=== PATIENT | female | born 1950 | race Caucasian/White ===

== ENCOUNTER 2022-08-07 10:01 | Inpatient (IN) ==
[2022-08-07] MEDS ORDERED: ALBUTEROL 0.083% NEBU SOLN 3 ML VIAL NEB STA (10:19)
--- NOTE | 2022-08-07 10:21 | Emergency Department Note ---
Impression & Plan CHF (congestive heart failure), Acute respiratory failure with hypoxia, Hypertension ED Provider Note NAME: AADLI SCHULER AGE: 72 SEX: F : 1950 ARRIVES VIA: Walk-In INFORMANT: Patient ED PROVIDER(S): Baudilio Lee DO CHIEF COMPLAINT: shortness of breath HPI: Patient is a 72-year-old female who walks 4 miles a day that presents to the ER for shortness of breath which started yesterday into today. She denies any new cough, runny nose, or congestion. She had COVID at the end of June. No chest pain. No belly pain, nausea, vomiting, or diarrhea. She notes she can barely walk 100 feet without getting extremely short of breath. Does not change with lying flat or sitting up. Rest does improve it. Again significantly worse with any kind of movement. ROS: See above HPI for pertinent positives & negatives. A total of 10 systems reviewed and were otherwise negative. PAST MEDICAL HISTORY:See Below PAST SURGICAL HISTORY:See Below FAMILY HISTORY:See Below SOCIAL HISTORY:See Below HOME MEDICATIONS:See Below ALLERGIES:See Below VITALS:See Below PHYSICAL EXAMINATION: GENERAL: Sitting up in bed, alert, dyspneic with conversation EYE EXAM: normal conjunctiva. PERRL and EOM's grossly intact. OROPHARYNX: no exudate, no erythema, lips, buccal mucosa, and tongue normal and mucous membranes are moist NECK: supple, no nuchal rigidity, no adenopathy, non-tender LUNGS: Clear to auscultation. Normal chest wall mechanics HEART: no murmurs, S1 normal and S2 normal ABDOMEN: abdomen soft, non-tender, normo-active bowel sounds, no masses, no rebound or guarding. UPPER EXTREMITIES: upper extremities are grossly normal. LOWER EXTREMITIES: No pitting edema. Left calf slightly larger than right NEURO EXAM: Normal sensorium, cranial nerves II-XII grossly intact, normal speech, no gross weakness of arms, no gross weakness of legs. MEDICAL DECISION MAKING: Patient is a 72-year-old female who presents ER for shortness of breath with exertion which started over the past 24 hours. IV was established blood work was obtained. Labs show mild leukocytosis of 14,000. No significant anemia. BMP with slightly elevated glucose at 148. Troponin was negative. LFTs were unremarkable. COVID was positive. Patient was positive with COVID at the end of June and I question if this is secondary to that or new infection. Chest x-ray and CT of the chest show no PEs but pulmonary edema. Patient was given Lasix. This is new onset. Updated at bedside. Discussed with the hospitalist Sam for further evaluation. She is hypoxic with exertion dropping down to 87%. Triage Nursing notes reviewed. Limited review of prior medical records performed Vital Signs: reviewed and remarkable for no significant abnormalities Differential diagnosis: Differential diagnoses includes but is not limited to pneumonia, bronchitis, COPD/Asthma exacerbation, pneumothorax, pulmonary embolism, congestive heart failure, acute coronary syndrome ER treatment provided: See below Diagnostics interpreted by me: ECG: Sinus rhythm at 87 Normal axis T wave inversion in lead III T wave version V1 through V3 QTC 466 no old to compare to Cardiac Monitoring: An order was placed for continuous cardiac monitoring. The monitor shows a rate of 80 with sinus rhythm. Laboratory studies: As stated above and show below. Imaging studies: CT of the chest shows pulmonary edema Consultation(s): D/w Dr. Pinedo as described above Procedures: none Critical Care: None Past Med/Surg History Medical History Anxiety Hypertension Social History (Updated 08/07/22 @ 13:36 by Sam Rivas MD) Smoking Status: Never smoker Hx Alcohol Use: Yes (~3x/day) Feels Safe at Home: Yes Allergies Allergies Allergy/AdvReac Type Severity Reaction Status Date / Time No Known Allergies Allergy Unverified 08/07/22 15:10 Home Meds Home Medications Medication Instructions Recorded Confirmed ascorbic acid (vitamin C) 500 mg 500 mg PO DAILY 08/07/22 08/07/22 tablet (Vitamin C) bromfenac 0.07 % eye drops 1 drp OPB BID 08/07/22 08/07/22 (Prolensa) cholecalciferol (vitamin D3) 25 25 mcg PO QAM 08/07/22 08/07/22 mcg (1,000 unit) tablet (Vitamin D3) iron 18 mg tablet 18 mg PO Q2D 08/07/22 08/07/22 lisinopril 20 mg tablet 20 mg PO DAILY 08/07/22 08/07/22 lutein 20 mg capsule 20 mg PO DAILY 08/07/22 08/07/22 nutritional supplement-fiber oral 0 ea PO BID 08/07/22 08/07/22 liquid omega 4-fyn-xwn-fish oil 60 mg-90 1 cap PO DAILY 08/07/22 08/07/22 mg-500 mg capsule (Fish Oil) tumeric 100 mg-roxie 150 mg-olive 1 cap PO DAILY 08/07/22 08/07/22 50 mg-oreg 150 mg-caprylate capsule vitamin B complex 1 cap PO QAM 08/07/22 08/07/22 vitamin E 268 mg (400 unit) capsule 268 mg PO DAILY 08/07/22 08/07/22 Previous Rx's Medication Instructions Recorded venlafaxine 75 mg tablet,extended 75 mg PO DAILY #90 tabs 07/14/19 release 24 hr Results & Data (ED) Vital Signs Vital Signs - 24 hr 08/07/22 10:06 08/07/22 10:33 08/07/22 10:33 Temperature 36.3 C L Temperature Source Temporal Artery Scan Pulse Rate 93 H Pulse Rate [Finger] Pulse Rate from SpO2 Sensor Pulse Rhythm [Finger] Pulse Strength [Finger] Respiratory Rate 22 Respiratory Effort / Characteristics Spontaneous Labored Non-Labored Spontaneous Respiratory Depth Normal Normal Respiratory Pattern Regular Regular Blood Pressure 104/75 Blood Pressure [Left Arm] Blood Pressure Mean 84 Blood Pressure Mean [Left Arm] Blood Pressure Position [Left Arm] Pulse Oximetry 93 Oxygen Delivery Method Room Air Room Air Sepsis Recent Fever Within 48 Hours No Sepsis New/Unexplained Change in Mental Status No Sepsis Action Taken by Nursing No Action Required 08/07/22 10:39 08/07/22 11:00 08/07/22 11:06 Temperature Temperature Source Pulse Rate 84 87 86 Pulse Rate [Finger] Pulse Rate from SpO2 Sensor 84 87 87 Pulse Rhythm [Finger] Pulse Strength [Finger] Respiratory Rate 31 H 23 21 Respiratory Effort / Characteristics Respiratory Depth Respiratory Pattern Blood Pressure Blood Pressure [Left Arm] Blood Pressure Mean Blood Pressure Mean [Left Arm] Blood Pressure Position [Left Arm] Pulse Oximetry 97 94 94 Oxygen Delivery Method Sepsis Recent Fever Within 48 Hours Sepsis New/Unexplained Change in Mental Status Sepsis Action Taken by Nursing 08/07/22 11:06 08/07/22 11:30 08/07/22 12:10 Temperature Temperature Source Pulse Rate 83 Pulse Rate [Finger] Pulse Rate from SpO2 Sensor 84 Pulse Rhythm [Finger] Pulse Strength [Finger] Respiratory Rate 22 Respiratory Effort / Characteristics Respiratory Depth Respiratory Pattern Blood Pressure 114/63 127/64 Blood Pressure [Left Arm] Blood Pressure Mean 80 85 Blood Pressure Mean [Left Arm] Blood Pressure Position [Left Arm] Pulse Oximetry 94 Oxygen Delivery Method Sepsis Recent Fever Within 48 Hours Sepsis New/Unexplained Change in Mental Status Sepsis Action Taken by Nursing 08/07/22 12:10 08/07/22 12:45 08/07/22 14:00 Temperature Temperature Source Pulse Rate 92 H Pulse Rate [Finger] 83 84 Pulse Rate from SpO2 Sensor Pulse Rhythm [Finger] Regular Regular Pulse Strength [Finger] Normal Normal Respiratory Rate 16 22 Respiratory Effort / Characteristics Short of Breath SOB on Exertion Non-Labored Respiratory Depth Normal Normal Respiratory Pattern Regular Regular Blood Pressure Blood Pressure [Left Arm] 128/77 148/92 H Blood Pressure Mean Blood Pressure Mean [Left Arm] 94 110 Blood Pressure Position [Left Arm] Lying Pulse Oximetry 88 L 93 Oxygen Delivery Method Room Air Room Air Sepsis Recent Fever Within 48 Hours Sepsis New/Unexplained Change in Mental Status Sepsis Action Taken by Nursing Laboratory Data Result diagrams: 08/07/22 10:30 08/07/22 10:30 Lab Results 08/07/22 08/07/22 08/07/22 Range/Units 10:30 10:30 10:34 WBC 14.10 H (4.8-10.8) K/ul RBC 4.36 (3.93-5.22) M/uL Hgb 14.4 (12.0-16.0) g/dl POC Hgb 15.0 (12.0-16.0) g/dl Hct 43.5 (34.1-44.9) % POC Hct 44 (37-47) % MCV 99.8 (80.0-100.0) fL MCH 33.0 (25.0-34.0) pg MCHC 33.1 (32.0-36.0) g/dL RDW Std Deviation 47.3 H (36.4-46.3) fL RDW Coeff of Dominique 12.9 (11.5-14.5) % Plt Count 210 (130-400) K/uL MPV 9.5 (9.4-12.3) fL Immature Gran % (Auto) 0.4 % Neut % (Auto) 92.9 % Lymph % (Auto) 1.5 % Giles % (Auto) 4.8 % Eos % (Auto) 0.1 % Baso % (Auto) 0.3 % Neut # (Auto) 13.11 H (1.4-6.5) K/uL Lymph # (Auto) 0.21 L (1.2-3.4) K/uL Giles # (Auto) 0.67 (0.24-0.82) K/uL Eos # (Auto) 0.02 (0-0.50) K/uL Baso # (Auto) 0.04 (0-0.2) K/uL Immature Gran # (Auto) 0.05 H (0.00-0.02) K/uL Toxic Vacuolation 1+ Echinocytes 2+ POC Sodium 140 (135-144) mmol/L Sodium 139 (136-145) mmol/L POC Potassium 4.3 (3.3-5.0) mmol/L Potassium 4.4 (3.5-5.1) mmol/L POC Chloride 104 (101-112) mmol/L Chloride 105 (98-107) mmol/L Carbon Dioxide 26 (21-32) mmol/L POC Total CO2 26 (24-31) mmol/L Anion Gap 8 (3-11) POC Anion Gap 15.0 L (16-25) mmol/L POC BUN 22 H (7-18) mg/dl BUN 20 (6-23) mg/dl Creatinine 0.74 (0.6-1.2) mg/dl POC Creatinine 0.7 (0.6-1.3) mg/dl Est Cr Clr Drug Dosing 71.8 ml/min Est GFR ( Amer) 92.5 ml/min Est GFR (Non-Af Amer) 79.8 ml/min BUN/Creatinine Ratio 27.0 H (10-20) Glucose 148 H (70-99(Fasting)) mg/dl POC Glucose (other) 152 H (70-99) mg/dl Calcium 8.6 (8.5-10.1) mg/dl POC Ioniz Calcium Hayden 1.09 L (1.12-1.32) mmol/l Total Bilirubin 1.1 H (0.2-1.0) mg/dl AST 15 (13-39) U/L ALT 11 (7-52) U/L Alkaline Phosphatase 61 (34-104) U/L Troponin I High Sens 5.1 (0-14) pg/ml Total Protein 6.1 (6.0-8.3) gm/dl Albumin 3.9 (3.4-5.0) gm/dl Globulin 2.2 L (2.5-4.0) gm/dl Albumin/Globulin Ratio 1.8 (0.9-2) Lipase 14 (11-82) U/L SARS-CoV-2 (PCR) (Negative) Influenza Type A (PCR) (Neg) Influenza Type B (PCR) (Neg) RSV (RT-PCR) (Neg) 08/07/22 08/07/22 Range/Units 10:39 14:24 WBC (4.8-10.8) K/ul RBC (3.93-5.22) M/uL Hgb (12.0-16.0) g/dl POC Hgb (12.0-16.0) g/dl Hct (34.1-44.9) % POC Hct (37-47) % MCV (80.0-100.0) fL MCH (25.0-34.0) pg MCHC (32.0-36.0) g/dL RDW Std Deviation (36.4-46.3) fL RDW Coeff of Dominique (11.5-14.5) % Plt Count (130-400) K/uL MPV (9.4-12.3) fL Immature Gran % (Auto) % Neut % (Auto) % Lymph % (Auto) % Giles % (Auto) % Eos % (Auto) % Baso % (Auto) % Neut # (Auto) (1.4-6.5) K/uL Lymph # (Auto) (1.2-3.4) K/uL Giles # (Auto) (0.24-0.82) K/uL Eos # (Auto) (0-0.50) K/uL Baso # (Auto) (0-0.2) K/uL Immature Gran # (Auto) (0.00-0.02) K/uL Toxic Vacuolation Echinocytes POC Sodium (135-144) mmol/L Sodium (136-145) mmol/L POC Potassium (3.3-5.0) mmol/L Potassium (3.5-5.1) mmol/L POC Chloride (101-112) mmol/L Chloride (98-107) mmol/L Carbon Dioxide (21-32) mmol/L POC Total CO2 (24-31) mmol/L Anion Gap (3-11) POC Anion Gap (16-25) mmol/L POC BUN (7-18) mg/dl BUN (6-23) mg/dl Creatinine (0.6-1.2) mg/dl POC Creatinine (0.6-1.3) mg/dl Est Cr Clr Drug Dosing ml/min Est GFR ( Amer) ml/min Est GFR (Non-Af Amer) ml/min BUN/Creatinine Ratio (10-20) Glucose (70-99(Fasting)) mg/dl POC Glucose (other) (70-99) mg/dl Calcium (8.5-10.1) mg/dl POC Ioniz Calcium Hayden (1.12-1.32) mmol/l Total Bilirubin (0.2-1.0) mg/dl AST (13-39) U/L ALT (7-52) U/L Alkaline Phosphatase (34-104) U/L Troponin I High Sens 4.6 (0-14) pg/ml Total Protein (6.0-8.3) gm/dl Albumin (3.4-5.0) gm/dl Globulin (2.5-4.0) gm/dl Albumin/Globulin Ratio (0.9-2) Lipase (11-82) U/L SARS-CoV-2 (PCR) POSITIVE A* (Negative) Influenza Type A (PCR) Negative (Neg) Influenza Type B (PCR) Negative (Neg) RSV (RT-PCR) Negative (Neg) Administered Medications Vitamin B Complex (Vitamin B Complex Tab) 1 tab PO QAM AZALEA Stop: 09/06/22 13:44 Last Admin: 08/07/22 14:52 Dose: 1 tab Documented By: YEYO Discontinued Medications Albuterol (Albuterol 0.083% Nebu Soln 3 Ml Vial) 2.5 mg NEB NOW STA; Protocol Stop: 08/07/22 10:20 Last Admin: 08/07/22 10:32 Dose: 2.5 mg Documented By: JOJO Furosemide (Furosemide 40 Mg/4 Ml Vial) 40 mg IV NOW STA Stop: 08/07/22 12:32 Last Admin: 08/07/22 12:46 Dose: 40 mg Documented By: JKH Ioversol (Optiray 320 500ml) 92 ml IV ONCE ONE Stop: 08/07/22 12:11 Last Admin: 08/07/22 12:10 Dose: 92 ml Documented By: NCAna Imaging Data Radiologist's Impression: Chest CTA 08/07/22 10:18 CT ANGIOGRAPHY OF THE CHEST, PULMONARY EMBOLUS PROTOCOL CLINICAL HISTORY: Wheezing. Chest pain. Evaluate for pulmonary embolus. COMPARISON STUDY: Chest radiographs April 17, 2006 and August 07, 2022. TECHNIQUE: Following IV administration of 92 mL of Optiray, helical axial images of the chest were obtained utilizing the pulmonary embolus protocol. Maximal intensity projections and sagittal and coronal reformats were viewed on an independent 3D workstation. IV contrast was administered without complication. Automated exposure control was utilized for the study. A dose lowering technique was utilized adhering to the principles of ALARA. CT DOSE: 400.60 mGy.cm FINDINGS: No pulmonary emboli are identified. There is no thoracic aortic dissection. Moderate cardiomegaly is noted. There is no pericardial effusion. Small bilateral pleural effusions are present. There is no pneumothorax. Central airways are patent. Index subcarinal lymph node measures 1.2 cm short axis diameter. Prominent bilateral hilar lymph nodes are present. Interlobular septal thickening throughout the lungs is noted. Additional ground glass opacities are also present. There is no lobar consolidation. No acute fracture or suspicious lesion within the visualized bony thorax is present. There are postoperative findings within the upper inner quadrant of the right breast. Visualized portions of the upper abdomen are unremarkable. IMPRESSION: 1. No pulmonary emboli identified. 2. Findings consistent with moderate pulmonary edema. Small bilateral pleural effusions. Cardiomegaly. 3. Prominent mediastinal and bilateral hilar lymph nodes which but may be related to pulmonary edema. ACT 112: Negative or not required by law. Electronically signed by: Donal Aguilar M.D. 08/07/2022 12:20 PM Chest X-Ray 08/07/22 10:18 SINGLE VIEW CHEST CLINICAL HISTORY: Atypical chest pain. Dyspnea. FINDINGS: An AP, portable, upright chest radiograph is compared to study dated 04/17/2006. The heart is enlarged noting atherosclerotic calcification of the thoracic aorta. There is pulmonary vascular congestion. Bilateral airspace opacities likely represent pulmonary edema. There are small pleural effusions with dependent consolidation. No pneumothorax is seen. The skeletal structures are osteopenic. The bony thorax is grossly intact. IMPRESSION: 1. Cardiomegaly with evidence of congestive failure. 2. Bilateral airspace opacities likely represent pulmonary edema. Correlate clinically for evidence of a superimposed infectious/inflammatory pneumonitis. Radiographic follow-up to resolution is recommended. 3. Small pleural effusions. ACT 112: Negative or not required by law. Electronically signed by: Gurmeet Rawls M.D. 08/07/2022 10:54 AM Discharge Plan Visit Data Chief Complaint: Shortness of Breath/Dyspnea Stated Complaint: CANT BREATHE, SOB ED Provider: Baudilio Lee Discharge Problem: CHF (congestive heart failure), Acute respiratory failure with hypoxia, Hypertension Forms Stand Alone Forms: My [facility] [employer] Prescriptions Prescriptions: No Action venlafaxine 75 mg tablet extended release 24hr 75 mg PO DAILY Qty: 90 1RF lisinopril 20 mg tablet 20 mg PO DAILY ascorbic acid (vitamin C) [Vitamin C] 500 mg Tablet 500 mg PO DAILY vitamin E 268 mg (400 unit) Capsule 268 mg PO DAILY vitamin B complex [B Complex] Capsule 1 cap PO QAM iron 18 mg Tablet 18 mg PO Q2D Juice Plus Liquid 0 ea PO BID lutein 20 mg Capsule 20 mg PO DAILY Rx Instructions: give with meal/snack cholecalciferol (vitamin D3) [Vitamin D3] 25 mcg (1,000 unit) Tablet 25 mcg PO QAM omega 3-psh-ees-fish oil [Fish Oil] 60-90-500 mg Capsule 1 cap PO DAILY Prolensa 0.07 % drops 1 drp OPB BID josovfc-fuxg-mksoq-oreg-capryl 100 mg-150 mg- 50 mg-150 mg Capsule 1 cap PO DAILY Referrals Referrals: Abhijit Edmondson MD [Primary Care Provider] -
[2022-08-07 10:47] LABS: iSTAT Creatinine 0.7 mg/dl (0.6-1.3); iSTAT Ionized Calcium 1.09 mmol/l (1.12-1.32); iSTAT Potassium 4.3 mmol/L (3.3-5.0)
[2022-08-07 10:48] LABS: Hematocrit (blood only) 43.5 % (34.1-44.9); Hemoglobin 14.4 g/dl (12.0-16.0); Mean Corpuscular Hgb Conc 33.1 g/dL (32.0-36.0); Mean Corpuscular Volume 99.8 fL (80.0-100.0); Mean Platelet Volume 9.5 fL (9.4-12.3); Platelet Count 210 K/uL (130-400); RDW Coefficient of Variation 12.9 % (11.5-14.5); RDW Standard Deviation 47.3 fL (36.4-46.3); Red Blood Count 4.36 M/uL (3.93-5.22)
--- NOTE | 2022-08-07 10:55 | XRay Report ---
SINGLE VIEW CHEST CLINICAL HISTORY: Atypical chest pain. Dyspnea. FINDINGS: An AP, portable, upright chest radiograph is compared to study dated 04/17/2006. The heart is enlarged noting atherosclerotic calcification of the thoracic aorta. There is pulmonary vascular con gestion. Bilateral airspace opacities likely represent pulmonary edema. There are small pleural effus ions with dependent consolidation. No pneumothorax is seen. The skeletal structures are osteopenic. T he bony thorax is grossly intact. IMPRESSION: 1. Cardiomegaly with evidence of congestive failure. 2. Bilateral airspace opacities likely represent pulmonary edema. Correlate clinically for evidence o f a superimposed infectious/inflammatory pneumonitis. Radiographic follow-up to resolution is recomme nded. 3. Small pleural effusions. ACT 112: Negative or not required by law. Electronically signed by: Gurmeet Rawls M.D. 08/07/2022 10:54 AM
[2022-08-07 11:09] LABS: Basophils # (auto) 0.04 K/uL (0-0.2); Basophils % (auto) 0.3 %; Echinocytes 2+; Eosinophils # (auto) 0.02 K/uL (0-0.50); Eosinophils % (auto) 0.1 %; Immature Granulocytes # (auto) 0.05 K/uL (0.00-0.02); Immature Granulocytes % (auto) 0.4 %; Lymphocytes # (auto) 0.21 K/uL (1.2-3.4); Lymphocytes % (auto) 1.5 %; Monocytes # (auto) 0.67 K/uL (0.24-0.82); Monocytes % (auto) 4.8 %; Neutrophils # (auto) 13.11 K/uL (1.4-6.5); Neutrophils % (auto) 92.9 %; Toxic Vacuolation 1+
[2022-08-07 11:19] LABS: Troponin I High Sensitivity 5.1 pg/ml (0-14)
[2022-08-07 11:24] LABS: Albumin Globulin Ratio 1.8 (0.9-2); Albumin Level 3.9 gm/dl (3.4-5.0); Bilirubin,Total 1.1 mg/dl (0.2-1.0); Calcium 8.6 mg/dl (8.5-10.1); Creatinine Clr Calc Pharmacy 71.8 ml/min; Est GFR (African American) 92.5 ml/min; Est GFR (Non-African American) 79.8 ml/min; Globulin 2.2 gm/dl (2.5-4.0); Potassium 4.4 mmol/L (3.5-5.1); Total Protein 6.1 gm/dl (6.0-8.3)
[2022-08-07 11:28] LABS: Influenza A virus by PCR Negative (Neg); Influenza B virus by PCR Negative (Neg); RSV by PCR Negative (Neg)
[2022-08-07 11:54] LABS: SARS CoV2 RNA(COVID-19)Cepheid POSITIVE (Negative)
[2022-08-07] MEDS ORDERED: OPTIRAY 320 500ml IV ONE (12:10)
--- NOTE | 2022-08-07 12:21 | CT Scan Report ---
CT ANGIOGRAPHY OF THE CHEST, PULMONARY EMBOLUS PROTOCOL CLINICAL HISTORY: Wheezing. Chest pain. Evaluate for pulmonary embolus. COMPARISON STUDY: Chest radiographs April 17, 2006 and August 07, 2022. TECHNIQUE: Following IV administration of 92 mL of Optiray, helical axial images of the chest were ob tained utilizing the pulmonary embolus protocol. Maximal intensity projections and sagittal and brittani nal reformats were viewed on an independent 3D workstation. IV contrast was administered without com plication. Automated exposure control was utilized for the study. A dose lowering technique was uti lized adhering to the principles of ALARA. CT DOSE: 400.60 mGy.cm FINDINGS: No pulmonary emboli are identified. There is no thoracic aortic dissection. Moderate cardi omegaly is noted. There is no pericardial effusion. Small bilateral pleural effusions are present. Th ere is no pneumothorax. Central airways are patent. Index subcarinal lymph node measures 1.2 cm short axis diameter. Prominent bilateral hilar lymph nodes are present. Interlobular septal thickening thr oughout the lungs is noted. Additional ground glass opacities are also present. There is no lobar con solidation. No acute fracture or suspicious lesion within the visualized bony thorax is present. Ther e are postoperative findings within the upper inner quadrant of the right breast. Visualized portions of the upper abdomen are unremarkable. IMPRESSION: 1. No pulmonary emboli identified. 2. Findings consistent with moderate pulmonary edema. Small bilateral pleural effusions. Cardiomegaly . 3. Prominent mediastinal and bilateral hilar lymph nodes which but may be related to pulmonary edema. ACT 112: Negative or not required by law. Electronically signed by: Donal Aguilar M.D. 08/07/2022 12:20 PM
[2022-08-07] MEDS ORDERED: FUROSEMIDE 40 MG/4 ML VIAL IV STA (12:31)
--- NOTE | 2022-08-07 12:55 | History & Physical Report ---
Date of Service August 07, 2022 Assessment & Plan (1) Acute respiratory failure with hypoxia: Plan: AHRF 2/2 Acute CHF Does endorse salty diet and likes pretzels. No prior history of CHF or CO Leukocytosis to 14.1 Creatinine with normal baseline less than 1, admitting creatinine 0.74 COVID is positive on admission, patient did have COVID with positive home test around July 16 with interval recovery prior to today. Suspect residual positive CXR: Cardiomegaly with pulmonary vascular congestion and bilateral opacities suspicious for edema with pleural effusions. - CTA:No pulmonary emboli are identified. There is no thoracic aortic disse ction. Moderate cardiomegaly is noted. There is no pericardial effusion. Small bilateral pleural effusions are present. There is no pneumothorax. Central airways are patent. Index subcarinal lymph node measures 1.2 cm short axis diameter. Prominent bilateral hilar lymph nodes are present. Interlobular septal thickening throughout the lungs is noted. Additional ground glass opacities are also present. There is no lobar consolidation. No acute fracture or suspicious lesion within the visualized bony thorax is present. There are postoperative findings within the upper inner quadrant of the right breast. Visualized portions of the upper abdomen are unremarkable. Troponin: High-sensitivity normal on admit. 2-hour repeat pending EKG normal sinus rhythm no ST segment changes. QTC 466 Procalcitonin pending. No fevers/chills/sweats. Without chest pain/troponin/EKG changes suggestive of CO/ischemic CHF. DDx includes alcohol induced, stress myopathy, diastolic dysfunction. Lyme pending. - Echo pending. SPO2 goal greater than 90% Anxiety Continue venlafaxine Hypertension Continue home aspirin daily, continue lisinopril 20 mg daily COVID-positive Was COVID-positive July 16 by home test. Did recover in the interval. Low suspicion for COVID as acute cause of symptoms,? Potential for viral myopathy. Echo pending above Given that no PCR test to confirm original date of infection is available must remain on COVID precautions at this time Defer steroids at this time, treat as CHF above Daily alcohol use Reports up to/around 3 drinks per day. Had several consecutive alcohol free days at the end of June and around COVID, reports she had no withdrawal symptoms or tremors due to this Follow clinically, if signs of tremors/tachycardia develops switch to LUIS FERNANDO S protocol. Defer active protocol at this time. DVT prophylaxis: Lovenox Diet: Heart healthy, low-salt Disposition: Medical with telemetry CODE STATUS: Full code (2) CHF (congestive heart failure): (3) Anxiety: (4) Hypertension: History of Present Illness Primary Care Provider: Abhijit Edmondson MD Katherine is a 72-year-old female with a past medical history of anxiety who presents with 2 days of shortness of breath without other URI symptoms. She is unable to ambulate for more than several 100 feet without limiting dyspnea, normally walks several miles a day without difficulty. In the ER she is with O2 sats approximately 92 at rest, quickly desats with an 88 on attempted ambulation to the bathroom. Seen at the bedside. She reports her symptoms began fairly quickly yesterday evening and this morning. She reports that she was last able to do her normal mountain hike yesterday (approximately 4 miles total with elevation change) with some increased but not significant shortness of breath, and then woke up today with significant exercise limitation due to shortness of breath. She denies chest pressure or chest pain at any point. She is anxious and tearful and notes that she has been under some stress with the holidays and notes her mother had a heart attack and from CHF in her 50s on . She endorses additional underlying anxiety. She does drink alcohol usually daily about 3 drinks per day, had several free alcohol days in a row last month without any withdrawal symptoms. Denies tobacco use. No prior chest pain/chest pressure/CO/angina. No nausea/vomiting/diarrhea/constipation. [place] live in the [place] with [place], no recent bites or rash to her knowledge. Has had some fingertip tingling in the last 24 hours. No fevers/chills/sweats/cough. Did have COVID last month, was diagnosed by home test a day or 2 before . Feels until today she had been breathing well. No cough. She denies orthopnea, and is able to breathe laying flat. Medical History: Reviewed Medications: Reviewed Surgical History: Reviewed Allergies: Reviewed Social History: Reviewed. Approximately 3 drinks per day, no history of withdrawal symptoms. No tobacco use. Code Status: Full code Allergies Allergy/AdvReac Type Severity Reaction Status Date / Time No Known Allergies Allergy Unverified 04/24/16 11:07 Home Medications Medication Instructions Recorded Confirmed Type ASPIRIN (ASPIRIN CHEWABLE) 81 mg PO QAM ##0 04/03/16 History B-COMPLEX VITAMINS (VITAMIN B 1 tab PO QAM ##0 04/03/16 History COMPLEX) BROMFENAC SODIUM (OPHTH) 1 drp OPR BID ##0 04/03/16 History (BROMFENAC) CHOLECALCIFEROL (VITAMIN D3) 1 cap PO QAM ##0 04/03/16 History Fish Oil (Randle-3) 1,250 mg PO QAM #0 caps 04/03/16 History IRON 27 mg PO Q2D ##0 04/03/16 History JUICE PLUS 2 cap PO DAILY ##0 04/03/16 History MISC NATURAL PRODUCTS (LUTEIN 20) 1 cap PO QAM ##0 04/03/16 History MULTIPLE VITAMINS W/ CALCIUM 1 dose PO BID ##0 04/03/16 History (VIACTIV MULTI-VITAMIN) NUTRITIONAL SUPPLEMENTS (JUICE ##0 04/03/16 History PLUS FIBRE) Tocopheryl Acet,Dl-Alpha (Vitamin 400 inter.unit PO QAM #0 caps 04/03/16 History E) Prednisolone Acetate 1% Oph (Pred 1 drp OPR TID ##0 04/19/16 History Forte 1% Oph) venlafaxine 75 mg tablet,extended 75 mg PO DAILY #90 tabs 07/14/19 Rx release 24 hr Past Med/Surg History Medical History Anxiety Hypertension Social History (Updated 08/07/22 @ 13:36 by Sam Rivas MD) Smoking Status: Never smoker Hx Alcohol Use: Yes (~3x/day) Feels Safe at Home: Yes Review of Systems Review of Systems: All systems reviewed & are unremarkable except as noted in Subjective Physical Exam Physical Exam: General: A&Ox3. NAD. Cooperative. HEENT: Atraumatic, normocephalic. Eom intact, PERLAA. Pulm: Bibasilar crackles without wheeze. No overt rales. Symmetrical chest rise. No increased work of breathing. No respiratory distress. Cardiac: RRR, -mrg. Radial pulses intact and symmetrical. Abdominal: Nontender, nondistended, soft. BS present. Ext: No pitting edema. Distal extremity strength and sensation to soft touch g rossly intact and symemtrical Results & Data Results & Data ([facility]) Vital Signs (Past 12 Hours) Vital Signs Temp Pulse Resp BP Pulse Ox O2 Del Method 08/07/22 12:10 92 H 16 08/07/22 12:10 127/64 08/07/22 11:30 83 22 94 08/07/22 11:06 114/63 08/07/22 11:06 86 21 94 08/07/22 11:00 87 23 94 08/07/22 10:39 84 31 H 97 08/07/22 10:33 Room Air 08/07/22 10:06 36.3 C L 93 H 22 104/75 93 Room Air PG Care Time/CCT Total # of Minutes Spent Total Time Spent with Patient: Total time spent is greater than 50% in coordination of care (as documented) at patient's floor/unit and/or counseling patient: Coding Level of Care Code INT OBSERVATION CARE 50M LVL 2 Diagnoses Acute respiratory failure with hypoxia J96.01 CHF (congestive heart failure) I50.9 Anxiety F41.9 Hypertension I10
[2022-08-07] MEDS: VITAMIN B COMPLEX TAB PO SCH ×2 (14:52→16:56)
--- NOTE | 2022-08-07 14:58 | XCELERA ---
[id number] \\[id number]_[id number]}___[id number]
[2022-08-07 15:29] LABS: Vitamin B12 419 pg/ml (180-914)
[2022-08-07] MEDS: lisinopril 20 MG TAB PO SCH ×2 (16:56→17:11)
[2022-08-07] MEDS ORDERED: ENOXAPARIN INJ 40 MG/0.4 ML SYR SQ SCH (17:50)
[2022-08-07] MEDS ORDERED: ACETAMINOPHEN 325 MG TAB PO PRN (17:50)
[2022-08-07] MEDS ORDERED: INFLUENZA VACCINE HIGH DOSE PF 65+ 0.7 ML SYR IM ONE (19:07)
[2022-08-07 19:08] LABS: Lyme Ab IgG w/WB Rflx Negative (Negative); Lyme Ab IgM w/WB Rflx Negative (Negative)
[2022-08-08 06:46] LABS: Basophils # (auto) 0.03 K/uL (0-0.2); Basophils % (auto) 0.5 %; Eosinophils # (auto) 0.13 K/uL (0-0.50); Eosinophils % (auto) 2.1 %; Hematocrit (blood only) 39.5 % (34.1-44.9); Hemoglobin 13.4 g/dl (12.0-16.0); Immature Granulocytes # (auto) 0.02 K/uL (0.00-0.02); Immature Granulocytes % (auto) 0.3 %; Lymphocytes # (auto) 0.67 K/uL (1.2-3.4); Mean Corpuscular Hemoglobin 33.3 pg (25.0-34.0); Mean Corpuscular Hgb Conc 33.9 g/dL (32.0-36.0); Mean Corpuscular Volume 98.3 fL (80.0-100.0); Mean Platelet Volume 9.5 fL (9.4-12.3); Monocytes # (auto) 0.48 K/uL (0.24-0.82); Monocytes % (auto) 7.9 %; Neutrophils # (auto) 4.78 K/uL (1.4-6.5); Neutrophils % (auto) 78.2 %; Platelet Count 161 K/uL (130-400); RDW Standard Deviation 46.5 fL (36.4-46.3); Red Blood Count 4.02 M/uL (3.93-5.22); White Blood Count 6.11 K/ul (4.8-10.8)
[2022-08-08 07:11] LABS: BUN Creatinine Ratio 19.4 (10-20); Calcium 8.3 mg/dl (8.5-10.1); Creatinine Clr Calc Pharmacy 84.3 ml/min; Est GFR (Non-African American) 88.8 ml/min; Potassium 3.5 mmol/L (3.5-5.1)
[2022-08-08] MEDS: lisinopril 20 MG TAB PO SCH (08:31)
[2022-08-08] MEDS ORDERED: lisinopril 20 MG TAB PO SCH (09:00)
[2022-08-08] MEDS ORDERED: ASPIRIN 81 MG CHEW PO SCH (09:00)
[2022-08-08] MEDS ORDERED: FUROSEMIDE 40 MG/4 ML VIAL IV SCH (09:00)
[2022-08-08] MEDS ORDERED: VENLAFAXINE HCL XR 75 MG CAPXR PO SCH (09:00)
[2022-08-08 10:00] LABS: Chol HDL Ratio 3.3 (0-5)
--- NOTE | 2022-08-08 18:03 | Discharge Summary ---
Date of Service August 08, 2022 Admission HPI Per Admitting Provider Katherine is a 72-year-old female with a past medical history of anxiety who presents with 2 days of shortness of breath without other URI symptoms. She is unable to ambulate for more than several 100 feet without limiting dyspnea, normally walks several miles a day without difficulty. In the ER she is with O2 sats approximately 92 at rest, quickly desats with an 88 on attempted ambulation to the bathroom. Seen at the bedside. She reports her symptoms began fairly quickly yesterday evening and this morning. She reports that she was last able to do her normal mountain hike yesterday (approximately 4 miles total with elevation change) with some increased but not significant shortness of breath, and then woke up today with significant exercise limitation due to shortness of breath. She denies chest pressure or chest pain at any point. She is anxious and tearful and notes that she has been under some stress with the holidays and notes her mother had a heart attack and from CHF in her 50s on . She endorses additional underlying anxiety. She does drink alcohol usually daily about 3 drinks per day, had several free alcohol days in a row last month without any withdrawal symptoms. Denies tobacco use. No prior chest pain/chest pressure/NC/angina. No nausea/vomiting/diarrhea/constipation. [place] live in the [place] with [place], no recent bites or rash to her knowledge. Has had some fingertip tingling in the last 24 hours. No fevers/chills/sweats/cough. Did have COVID last month, was diagnosed by home test a day or 2 before . Feels until today she had been breathing well. No cough. She denies orthopnea, and is able to breathe laying flat. Medical History: Reviewed Medications: Reviewed Surgical History: Reviewed Allergies: Reviewed Social History: Reviewed. Approximately 3 drinks per day, no history of withdrawal symptoms. No tobacco use. Code Status: Full code Principal Diagnosis acute hypoxic respiratory failure Discharge Exam General: A&Ox3. NAD. Cooperative. HEENT: Atraumatic, normocephalic. EOMI. Pulm: Mildly diminished sounds RLL otherwise CTAB. Symmetrical chest rise. No increased work of breathing. No respiratory distress. Cardiac: RRR, -mrg. Radial pulses intact and symmetrical. Abdominal: Nontender, nondistended, soft. BS present. Ext: No pitting edema. Discharge Data Allergies Allergy/AdvReac Type Severity Reaction Status Date / Time No Known Allergies Allergy Unverified 08/07/22 15:10 Consultations 08/07/22 12:32 ED Decision to Admit Stat Ordered Studies Laboratory Results WBC 6.11 K/ul (4.8-10.8) 08/08/22 06:22 RBC 4.02 M/uL (3.93-5.22) 08/08/22 06:22 Hgb 13.4 g/dl (12.0-16.0) 08/08/22 06:22 POC Hgb 15.0 g/dl (12.0-16.0) 08/07/22 10:34 Hct 39.5 % (34.1-44.9) 08/08/22 06:22 POC Hct 44 % (37-47) 08/07/22 10:34 MCV 98.3 fL (80.0-100.0) 08/08/22 06:22 MCH 33.3 pg (25.0-34.0) 08/08/22 06:22 MCHC 33.9 g/dL (32.0-36.0) 08/08/22 06:22 RDW Std Deviation 46.5 fL (36.4-46.3) H 08/08/22 06: RDW Coeff of Dominique 13.0 % (11.5-14.5) 08/08/22 06:22 Plt Count 161 K/uL (130-400) 08/08/22 06:22 MPV 9.5 fL (9.4-12.3) 08/08/22 06:22 Immature Gran % (Auto) 0.3 % 08/08/22 06:22 Neut % (Auto) 78.2 % 08/08/22 06:22 Lymph % (Auto) 11.0 % 08/08/22 06: Phelps % (Auto) 7.9 % 08/08/22 06:22 Eos % (Auto) 2.1 % 08/08/22 06: Baso % (Auto) 0.5 % 08/08/22 06:22 Neut # (Auto) 4.78 K/uL (1.4-6.5) 08/08/22 06:22 Lymph # (Auto) 0.67 K/uL (1.2-3.4) L 08/08/22 06:22 Phelps # (Auto) 0.48 K/uL (0.24-0.82) 08/08/22 06:22 Eos # (Auto) 0.13 K/uL (0-0.50) 08/08/22 06:22 Baso # (Auto) 0.03 K/uL (0-0.2) 08/08/22 06:22 Immature Gran # (Auto) 0.02 K/uL (0.00-0.02) 08/08/22 06:22 Toxic Vacuolation 1+ 08/07/22 10:30 Echinocytes 2+ 08/07/22 10:30 POC Sodium 140 mmol/L (135-144) 08/07/22 10:34 Sodium 139 mmol/L (136-145) 08/08/22 06:22 POC Potassium 4.3 mmol/L (3.3-5.0) 08/07/22 10:34 Potassium 3.5 mmol/L (3.5-5.1) D 08/08/22 06:22 POC Chloride 104 mmol/L (101-112) 08/07/22 10:34 Chloride 105 mmol/L (98-107) 08/08/22 06:22 Carbon Dioxide 28 mmol/L (21-32) 08/08/22 06:22 POC Total CO2 26 mmol/L (24-31) 08/07/22 10:34 Anion Gap 6 (3-11) 08/08/22 06:22 POC Anion Gap 15.0 mmol/L (16-25) L 08/07/22 10:34 POC BUN 22 mg/dl (7-18) H 08/07/22 10:34 BUN 12 mg/dl (6-23) 08/08/22 06:22 Creatinine 0.62 mg/dl (0.6-1.2) 08/08/22 06:22 POC Creatinine 0.7 mg/dl (0.6-1.3) 08/07/22 10:34 Est Cr Clr Drug Dosing 84.3 ml/min 08/08/22 06:22 Est GFR ( Amer) 103.0 ml/min 08/08/22 06:22 Est GFR (Non-Af Amer) 88.8 ml/min 08/08/22 06:22 BUN/Creatinine Ratio 19.4 (10-20) 08/08/22 06:22 Glucose 93 mg/dl (70-99(Fasting)) 08/08/22 06:22 POC Glucose (other) 152 mg/dl (70-99) H 08/07/22 10:34 Calcium 8.3 mg/dl (8.5-10.1) L 08/08/22 06:22 POC Ioniz Calcium Hayden 1.09 mmol/l (1.12-1.32) L 08/07/22 10:34 Total Bilirubin 1.1 mg/dl (0.2-1.0) H 08/07/22 10:30 AST 15 U/L (13-39) 08/07/22 10:30 ALT 11 U/L (7-52) 08/07/22 10:30 Alkaline Phosphatase 61 U/L (34-104) 08/07/22 10:30 Troponin I High Sens 4.6 pg/ml (0-14) 08/07/22 14:24 Total Protein 6.1 gm/dl (6.0-8.3) 08/07/22 10:30 Albumin 3.9 gm/dl (3.4-5.0) 08/07/22 10:30 Globulin 2.2 gm/dl (2.5-4.0) L 08/07/22 10:30 Albumin/Globulin Ratio 1.8 (0.9-2) 08/07/22 10:30 Triglycerides 193 mg/dl (0-150) H 08/08/22 06:22 Cholesterol 195 mg/dl (0-200) 08/08/22 06:22 LDL Cholesterol, Calc 97 mg/dl 08/08/22 06:22 VLDL Cholesterol, Calc 39 mg/dl (0-30) H 08/08/22 06:22 HDL Cholesterol 59 mg/dl 08/08/22 06:22 Cholesterol/HDL Ratio 3.3 (0-5) 08/08/22 06:22 Lipase 14 U/L (11-82) 08/07/22 10:30 Vitamin B12 419 pg/ml (180-914) 08/07/22 14:24 Folate > 22.30 ng/ml (>5.38) 08/07/22 14:24 Procalcitonin 1.37 ng/ml (0-0.5) H 08/08/22 06:22 Lyme Disease IgG Ab Negative (Negative) 08/07/22 17:50 Lyme Disease IgM Ab Negative (Negative) 08/07/22 17:50 SARS-CoV-2 (PCR) POSITIVE (Negative) A* 08/07/22 10:39 Influenza Type A (PCR) Negative (Neg) 08/07/22 10:39 Influenza Type B (PCR) Negative (Neg) 08/07/22 10:39 RSV (RT-PCR) Negative (Neg) 08/07/22 10:39 Impressions Chest CTA 08/07/22 10:18 CT ANGIOGRAPHY OF THE CHEST, PULMONARY EMBOLUS PROTOCOL CLINICAL HISTORY: Wheezing. Chest pain. Evaluate for pulmonary embolus. COMPARISON STUDY: Chest radiographs April 17, 2006 and August 07, 2022. TECHNIQUE: Following IV administration of 92 mL of Optiray, helical axial images of the chest were obtained utilizing the pulmonary embolus protocol. Maximal intensity projections and sagittal and coronal reformats were viewed on an independent 3D workstation. IV contrast was administered without complication. Automated exposure control was utilized for the study. A dose lowering technique was utilized adhering to the principles of ALARA. CT DOSE: 400.60 mGy.cm FINDINGS: No pulmonary emboli are identified. There is no thoracic aortic dissection. Moderate cardiomegaly is noted. There is no pericardial effusion. Small bilateral pleural effusions are present. There is no pneumothorax. Central airways are patent. Index subcarinal lymph node measures 1.2 cm short axis diameter. Prominent bilateral hilar lymph nodes are present. Interlobular septal thickening throughout the lungs is noted. Additional ground glass opacities are also present. There is no lobar consolidation. No acute fracture or suspicious lesion within the visualized bony thorax is present. There are postoperative findings within the upper inner quadrant of the right breast. Visualized portions of the upper abdomen are unremarkable. IMPRESSION: 1. No pulmonary emboli identified. 2. Findings consistent with moderate pulmonary edema. Small bilateral pleural effusions. Cardiomegaly. 3. Prominent mediastinal and bilateral hilar lymph nodes which but may be related to pulmonary edema. ACT 112: Negative or not required by law. Electronically signed by: Donal Aguilar M.D. 08/07/2022 12:20 PM Chest X-Ray 08/07/22 10:18 SINGLE VIEW CHEST CLINICAL HISTORY: Atypical chest pain. Dyspnea. FINDINGS: An AP, portable, upright chest radiograph is compared to study dated 04/17/2006. The heart is enlarged noting atherosclerotic calcification of the thoracic aorta. There is pulmonary vascular congestion. Bilateral airspace opacities likely represent pulmonary edema. There are small pleural effusions with dependent consolidation. No pneumothorax is seen. The skeletal structures are osteopenic. The bony thorax is grossly intact. IMPRESSION: 1. Cardiomegaly with evidence of congestive failure. 2. Bilateral airspace opacities likely represent pulmonary edema. Correlate clinically for evidence of a superimposed infectious/inflammatory pneumonitis. Radiographic follow-up to resolution is recommended. 3. Small pleural effusions. ACT 112: Negative or not required by law. Electronically signed by: Gurmeet Rawls M.D. 08/07/2022 10:54 AM Hospital Course (1) Acute respiratory failure with hypoxia: AHRF 2/2 Acute CHF Does endorse salty diet and likes pretzels. No prior history of CHF or NC. Initial leukocytosis resolved. Creatinine with normal baseline less than 1, admitting creatinine 0.74 COVID positive on admission, patient did have COVID with positive home test around July 16 with interval recovery prior to today. Suspect residual positive CXR: Cardiomegaly with pulmonary vascular congestion and bilateral opacities suspicious for edema with pleural effusions. - CTA: No pulmonary emboli are identified. There is no thoracic aortic dissection. Moderate cardiomegaly is noted. There is no pericardial effusion. Small bilateral pleural effusions are present. Prominent bilateral hilar lymph nodes are present. Interlobular septal thickening throughout the lungs is noted. Additional ground glass opacities are also present. There is no lobar consolidation. Trops neg. EKG normal sinus rhythm no ST segment changes.QTC 466 Procalcitonin wnl. No fevers/chills/sweats. Without chest pain/troponin/EKG changes suggestive of NC/ischemic CHF.Echo unremarkable. -Symptoms resolved at this time. Etiology unclear but diuresis did seem to improve sob and pulm edema. Possibly some component of previous covid infection. ?brief episode afib, may consider outpatient holter monitor if occurs again. -f/u pcp Anxiety Continue venlafaxine Hypertension Continue home aspirin daily, continue lisinopril 20 mg daily COVID-positive Was COVID-positive July 16 by home test. Did recover in the interval. Low suspicion for COVID as acute cause of symptoms,? Potential for viral myopathy. Echo pending above Defer steroids at this time, treat as CHF above Daily alcohol use Reports up to/around 3 drinks per day. Had several consecutive alcohol free days at the end of June and around COVID, reports she had no withdrawal symptoms or tremors due to this (2) CHF (congestive heart failure): (3) Anxiety: (4) Hypertension: Total Time Total Time Spent Total Time Spent (In Minutes): <30 Discharge Plan Discharge Items Patient Disposition: Home - Self-Care Reason For Visit: ACUTE CHF, AHRF Discharge Diagnosis: acute hypoxic respiratory failure Activity: Resume your previous activity Non-emergency contact: Primary Care Provider Call non-emergency contact if: you have any medication questions and your symptoms worsen Follow-up/Referrals: Abhijit Edmondson MD [Primary Care Provider] - (please schedule TCM with either Dr. Curt Lynch, or myself (Dr. Bassett)) Will Elias [Hospitalist] - 08/14/22 9:50 am Diet: Regular Addtl Attending Provider Instructions: You admitted to the hospital for shortness of breath which was found to be due to increased fluid in or around your lungs. With further work-up it appears your heart is in good shape and does not appear to be the etiology of your symptoms. Although you are coming off a COVID infection from a few weeks ago it is also less likely and that you began to have symptoms weeks after onset of symptoms. Given a generally unremarkable work-up along with your improvement clinically with diuretics you are stable to go home and will have close follow- up with your primary care provider. This can be either with Dr. Curt Lynch, or myself (Dr. Bassett). It is unclear the exact phenomena of the onset of your s ymptoms however we do not believe we need to do extensive work-up at this moment in time. Pending Studies at Discharge: No Stand-Alone Forms: My [facility] Medications and DC Order Prescriptions: Continued venlafaxine 75 mg tablet extended release 24hr 75 mg PO DAILY Qty: 90 1RF lisinopril 20 mg tablet 20 mg PO DAILY ascorbic acid (vitamin C) [Vitamin C] 500 mg Tablet 500 mg PO DAILY vitamin E 268 mg (400 unit) Capsule 268 mg PO DAILY vitamin B complex Capsule 1 cap PO QAM iron 18 mg Tablet 18 mg PO Q2D nutritional supplement-fiber Liquid 0 ea PO BID lutein 20 mg Capsule 20 mg PO DAILY Rx Instructions: give with meal/snack cholecalciferol (vitamin D3) [Vitamin D3] 25 mcg (1,000 unit) Tablet 25 mcg PO QAM omega 7-wtm-kgx-fish oil [Fish Oil] 60-90-500 mg Capsule 1 cap PO DAILY Prolensa 0.07 % drops 1 drp OPB BID teqxfro-cwmv-atkef-oreg-capryl 100 mg-150 mg- 50 mg-150 mg Capsule 1 cap PO DAILY Discharge Orders: Discharge Order (Routine); Ordered 08/08/22 Ordered By: Edi Bassett Admission Data Admit Date/Time: 08/07/22 13:31 Attending Provider: Baudilio Colmenares Admit Provider: Sam Rivas Primary Care Provider: Abhijit Edmondson Other Providers: Sam Rivas Other Interventions: Discharge Summary Assessment (RN) Last Done: 08/08/22 13:47 Supervising Physician Co-Signing Physician Notes I personally examined the patient and verified all galloway points of history and exam, discussed case, and agree with decision making with Dr Bassett. Feeling better and feels up to going home. Vitals noted, in general she is awake and alert pleasant no distress. HEENT normocephalic atraumatic mucous membranes moist. Breathing unlabored no accessory muscle use good effort. Skin shows no rashes no pallor or icterus. Neuro without focal deficits. Dyspnea/acute hypoxic respiratory failureappears to have been acute pulmonary edema/acute HFpEFecho surprisingly reassuring. Discussed with patient unclear etiology, further work-up could be undertaken, but as it would also be quite kenneth sonable to watch her closely clinically, repeat a chest x-ray in 2 to 4 weeks, and then work-up further if symptoms persist/recur/do not resolve. She appreciated this approach and opted for close clinical follow-up. Safe/stable for home. Otherwise as above Resident Activity Tracking Resident Involvement: Resident Care Provided Care Provided: Adult Hospital Medicine
--- NOTE | 2022-08-08 19:13 | Billing Data ---
Date of Service August 08, 2022 Coding Level of Care Code D/C DAY MANAGEMENT <30 MINS
--- NOTE | 2022-08-09 06:35 | Electrocardiogram Report ---
Test Reason : Blood Pressure : / mmHG Vent. Rate : 087 BPM Atrial Rate : 087 BPM P-R Int : 168 ms QRS Dur : 086 ms QT Int : 388 ms P-R-T Axes : 065 097 032 degrees QTc Int : 466 ms Poor data quality, interpretation may be adversely affected Normal sinus rhythm Rightward axis Low voltage QRS Nonspecific T wave abnormality No previous ECGs available Confirmed by Jeff Gupta ([id number]) on 08/09/2022 6:35:03 AM Referred By: REFERRED SELF Confirmed By:Jeff Gupta
== END 2022-08-08 14:35 | disposition home or self-care (01) | DRG 291 ==
LOC: ED 10:01 → SUATTDRO 13:31 → 2N 13:31 → 2S 18:41